=== PATIENT | male | born 1955 | race African-American/Black ===

== ENCOUNTER 2025-03-03 16:29 | Inpatient (IN) | payer MEDICARE, OTHER ==
[~2025-03-03] VITALS: Ht 182.9 cm; Wt 93.4 kg
[2025-03-03 16:33] VITALS: O2SAT 100
[2025-03-03 17:36] LABS: BASOPHILS % 0.3 % (0.0-2.0); EOSINOPHILS % 1.5 % (0.0-5.0); HEMATOCRIT. 37.2 % (42.0-52.0); HEMOGLOBIN. 12.3 g/dL (14.0-18.0); LYMPHOCYTES % 28.0 % (20.0-50.0); MEAN PLATELET VOLUME 8.0 fl (7.4-10.4); MONOCYTES % 10.8 % (2.0-8.0); NEUTROPHILS % 59.4 % (40.0-76.0); PLATELET 256 x1000/uL (130-400); RED BLOOD CELL COUNT 4.20 mill/uL (4.7-6.1); RED CELL DISTRIBUTION WIDTH 14.5 % (11.6-14.6)
[2025-03-03] MEDS: DEXAMETHASONE 10 MG/ML VIAL IV ONE (17:36)
[2025-03-03] MEDS: FAMOTIDINE 20MG/2ML VIAL IV ONE (17:36)
[2025-03-03] MEDS: DIPHENHYDRAMINE 50MG/ML VIAL IV ONE (17:36)
[2025-03-03 18:12] LABS: CREATININE 1.0 mg/dL (0.6-1.3); UREA NITROGEN BLOOD 17 mg/dL (9-23)
[2025-03-03] MEDS ORDERED: ACETAMINOPHEN 325MG TABLET PO PRN (19:45)
[2025-03-03] MEDS ORDERED: IPRATROPIUM/ALBUTEROL 0.5-3(2.5)MG/3ML NEB HHN PRN (19:45)
[2025-03-03] MEDS ORDERED: ONDANSETRON HCL 4MG/2ML INJ IV PRN (19:45)
[2025-03-03] MEDS: EPINEPHRINE 1:1000 1 MG/ML AMP IM NR (20:56)
[2025-03-03 23:00] VITALS: BP 136/71; PULSE 79; RESP 20; TEMP 36.696
[2025-03-04] VITALS (17 sets, daily range): BP systolic 115–156; BP diastolic 64–84; PULSE 68–86; RESP 12–22; TEMP 36.3–37.8; O2SAT 95–99
[2025-03-04] MEDS ORDERED: EPINEPHRINE 1:1000 1 MG/ML AMP IM PRN (00:15)
[2025-03-04] MEDS: EPINEPHRINE 1:1000 1 MG/ML AMP IM NR (00:24)
[2025-03-04] MEDS: FAMOTIDINE 20MG/2ML VIAL IV SCH (00:24)
[2025-03-04] MEDS: DEXT 5%/0.9% NACL 1,000 ML IV SCH (01:14)
[2025-03-04 02:19] LABS: CLARITY URINE CLEAR (CLEAR); COLOR URINE YELLOW (YELLOW); GLUCOSE URINE NEGATIVE (NEGATIVE); KETONES URINE TRACE (NEGATIVE); LEUKOCYTE ESTERASE URINE NEGATIVE (NEGATIVE); NITRITE URINE NEGATIVE (NEGATIVE); OCCULT BLOOD URINE 2+ (NEGATIVE); PH URINE 7.0 (4.5-8.0); PROTEIN URINE NEGATIVE (NEGATIVE); SPECIFIC GRAVITY URINE 1.021 (1.005-1.030); UROBILINOGEN URINE 1.0 E.U./dL (0.2-1.0)
[2025-03-04] MEDS: DIPHENHYDRAMINE 50MG/ML VIAL IV NR (04:06)
[2025-03-04 05:01] LABS: RBC URINE 0-2 /hpf (0-2); WBC URINE 0-2 /hpf (0-2)
[2025-03-04 05:02] LABS: BACTERIA URINE NONE SEEN; SQUAMOUS EPITHELIAL CELL URINE FEW /lpf (RARE/1+)
[2025-03-04] MEDS: METHYLPREDNISOLONE SOD SUCC 40MG/ML (ACT-O-VIAL) IV SCH (06:58)
[2025-03-04] MEDS: ENOXAPARIN 30MG/0.3ML SYR SUBCUT SCH (08:35)
[2025-03-04 12:47] LABS: CREATININE 1.0 mg/dL (0.6-1.3); UREA NITROGEN BLOOD 19 mg/dL (9-23)
[2025-03-04 12:48] LABS: PROTEIN TOTAL 7.7 g/dL (6.0-8.3)
[2025-03-04 12:49] LABS: ASPARTATE AMINOTRANSFERASE 19 IU/L (<34); BILIRUBIN DIRECT 0.1 mg/dL (<=3.0); PHOSPHORUS 3.0 mg/dL (2.5-4.9)
[2025-03-04 12:50] LABS: BILIRUBIN TOTAL 0.3 mg/dL (0.1-1.0)
[2025-03-05] VITALS (12 sets, daily range): BP systolic 109–152; BP diastolic 60–83; PULSE 53–78; RESP 13–35; TEMP 36.5–37.6; O2SAT 95–98
[2025-03-05] MEDS ORDERED: EPIN0.3P3 IM (10:17)
[2025-03-05] MEDS ORDERED: DIPH25TA62 MT (10:17)
[2025-03-05] MEDS ORDERED: PRED5TAB48 PO (10:17)
[2025-03-05 11:48] LABS: BASOPHILS % 0.0 % (0.0-2.0); EOSINOPHILS % 0.0 % (0.0-5.0); HEMATOCRIT. 32.0 % (42.0-52.0); HEMOGLOBIN. 10.8 g/dL (14.0-18.0); LYMPHOCYTES % 16.1 % (20.0-50.0); MEAN PLATELET VOLUME 7.9 fl (7.4-10.4); MONOCYTES % 2.6 % (2.0-8.0); NEUTROPHILS % 81.3 % (40.0-76.0); PLATELET 241 x1000/uL (130-400); RED BLOOD CELL COUNT 3.65 mill/uL (4.7-6.1); RED CELL DISTRIBUTION WIDTH 14.8 % (11.6-14.6)
[2025-03-05 12:03] LABS: CREATININE 1.0 mg/dL (0.6-1.3); UREA NITROGEN BLOOD 21 mg/dL (9-23)
[2025-03-05] MEDS: BLOOD SUGAR DIAGNOSTIC STRIP TEST SCH (17:41)
[2025-03-05] MEDS: INSULIN LISPRO 100 UNITS/ML SUBCUT SCH (17:50)
[2025-03-06] VITALS (12 sets, daily range): BP systolic 102–151; BP diastolic 64–78; PULSE 52–86; RESP 17–29; TEMP 36.4–36.9; O2SAT 98–100
[2025-03-07] VITALS (8 sets, daily range): BP systolic 117–142; BP diastolic 61–119; PULSE 52–67; RESP 15–36; TEMP 35.8–36.8; O2SAT 100
[2025-03-07] MEDS ORDERED: PREDNISOLONE 15 MG/5 ML ORAL SYRINGE PO SCH (09:00)
[2025-03-07] MEDS: PREDNISONE 5MG TABLET PO SCH (10:00)
[2025-03-07] MEDS: ACETAMINOPHEN 325MG TABLET PO PRN (13:22)
[2025-03-08] VITALS: BP 122/68; PULSE 68; RESP 18; TEMP 35.9; O2SAT 99
[2025-03-08 08:00] VITALS: BP 121/61; PULSE 61; RESP 20; TEMP 36.3; O2SAT 100
[2025-03-08] MEDS: ENOXAPARIN 40MG/0.4ML SYR SUBCUT SCH (08:28)
[2025-03-08 12:00] VITALS: BP 125/68; PULSE 63; RESP 20; TEMP 36.4; O2SAT 97
[2025-03-08 16:00] VITALS: BP 135/74; PULSE 70; RESP 19; TEMP 36.3; O2SAT 100
[2025-03-08 20:00] VITALS: BP 131/47; PULSE 82; RESP 20; TEMP 36.3; O2SAT 99
[2025-03-09] VITALS: BP 130/52; PULSE 70; RESP 20; TEMP 36.3; O2SAT 98
[2025-03-09 08:00] VITALS: BP 107/65; PULSE 71; RESP 16; TEMP 36.9; O2SAT 99
[2025-03-09 11:24] VITALS: BP 115/67; PULSE 75; RESP 16; TEMP 98
[2025-03-10 10:07] LABS: C1 ESTERASE INHIBITOR 27 mg/dL (21-39)
[2025-03-10 17:10] LABS: C1 ESTERASE INHIBITOR FUNCTNL > 105 (.)
== END 2025-03-09 12:30 | DRG 916 ==
LOC: ER 16:29 → 8WST 18:38 → EDBEDREQTM 18:40 → EDBEDREQ 18:40 → ENRESERV 22:17 → 8WST 23:06 → 5EST 03-04 01:00 → 6EST 03-07 13:49
PROVIDERS: ADMIT Internal Medicine; ATTEND Internal Medicine
PROC: 30233K1 Transfusion of Nonautologous Frozen Plasma into Peripheral Vein, Percutaneous Approach (ICD-10-PCS; principal; 2025-03-04)
DX: T78.3XXA Angioneurotic edema, initial encounter (principal); D64.9 Anemia, unspecified; I10 Essential (primary) hypertension; F84.0 Autistic disorder; T50.995A Adverse effect of other drugs, medicaments and biological substances, initial encounter; Z80.42 Family history of malignant neoplasm of prostate; Y82.8 Other medical devices associated with adverse incidents; Y92.89 Other specified places as the place of occurrence of the external cause
CPT/HCPCS: 36415; 36430; 70360; 80048; 80076; 81003; 82962; 83735; 84100; 84443; 85025; 86160; 86161; 86850; 86900; 86927; 93005; 93970; 96374; 96375; 97162; 97530; 99285; A4606; J1100; J1200; J1308; J1650; J1815; J2919; J3490; J7512; P9017